=== PATIENT | male | born 1940 | race Caucasian/White ===

== ENCOUNTER → 2020-03-16 | Outpatient (CLI) | payer OTHER ==
[~2020-03-16] MED LIST: ASPIRIN EC325 M1 PO; DIOVAN40 MG; FISH OIL 1,0001 EAC5 PO; GLUCOSAMINE-MS1 EAC3 PO; LIPITOR20 MG; LIPITOR80 MG PO; PROAIR HFA8.5 GM INH; TOPROL XL100 MG PO; TOPROL XL25 MG PO; VALSARTAN-HCTZ1 EAC2 PO
== END ==
LOC: CAT 12:57
DX: R41.3 Other amnesia (principal)